=== PATIENT | male | born 1965 | race Caucasian/White ===

== ENCOUNTER 2017-03-17 13:23 | Emergency (ER) | payer OTHER ==
[~2017-03-17] VITALS: Ht 180.3 cm; Wt 104.3 kg
[2017-03-17 14:54] LABS: ABSOLUTE BASOPHIL COUNT 0.1 /CUMM (0.0-0.2); ABSOLUTE EOSINOPHIL COUNT 0.1 /CUMM (0.0-0.7); ABSOLUTE GRANULOCYTE CT 8.9 /CUMM (1.4-6.5); ABSOLUTE LYMPH COUNT 4.1 /CUMM (1.2-3.4); ABSOLUTE MONOCYTE COUNT 0.8 /CUMM (0.10-0.60); BASOPHIL % 0.5 % (0.0-2.0); EOSINOPHIL % 0.8 % (0-5); MEAN CORPUSCULAR HGB 30.7 PG (27.0-31.0); MEAN CORPUSCULAR HGB CONC 33.1 G/DL (33.0-37.0); MEAN CORPUSCULAR VOLUME 92.8 FL (80.0-94.0); MEAN PLATELET VOLUME 8.6 FL (7.4-10.4); PLATELET COUNT 206 /CUMM (130-400); RBC DISTRIBUTION WIDTH 13.5 % (11.5-14.5); RED BLOOD CELL CT 5.71 /CUMM (4.70-6.10)
[2017-03-17 15:17] LABS: GRANULOCYTE % 63.7 % (42.2-75.2)
--- NOTE | 2017-03-17 15:23 | CT SCAN REPORT ---
EXAMINATION: CT HEAD WITHOUT CONTRAST CLINICAL INFORMATION: Blurry vision. COMPARISON: None. TECHNIQUE: Contiguous axial imaging was performed from the skull base to vertex without intravenous administration of contrast. DLP: 638 mGy-cm FINDINGS: No acute intracranial abnormality. No acute intracranial hemorrhage, mass or mass effect or abnormal extra-axial fluid collections. The density within the dural venous sinuses is within normal limits. The ventricles are normal in size, without hydrocephalus. There are no focal areas of hypoattenuation within a vascular distribution to suggest acute transcortical ischemia. The basilar cisterns are patent. No acute calvarial abnormality is identified. Soft tissues appear unremarkable. Evaluation of the paranasal sinuses demonstrates moderate mucosal thickening of the bilateral maxillary sinuses. There is a small mucous retention cyst/polyp within the left maxillary sinus. The remaining imaged paranasal sinuses and mastoid air cells are well aerated. IMPRESSION: No acute intracranial pathology.
[2017-03-17] MEDS ORDERED: ASPIRIN EC81 M1 PO (16:27)
[2017-03-17] MEDS ORDERED: NEURONTIN100 M1 PO (16:27)
--- NOTE | 2017-03-17 16:39 | ED NEURO DEFICIT/STROKE ---
History of Present Illness General Chief Complaint: Neuro Symptoms/ Deficit Stated Complaint: SIB URGENT CARE FOR ?STROKE Source: patient Exam Limitations: no limitations Vital Signs & Intake/Output Vital Signs & Intake/Output Vital Signs Date Time Temp Pulse Resp B/P B/P Pulse O2 O2 Flow FiO2 Mean Ox Delivery Rate 03/17 1642 Room Air 03/17 1642 98.2 90 18 136/87 97 Room Air 03/17 1329 97.2 90 16 128/84 98 Room Air Allergies Coded Allergies: No Known Allergies (03/17/17) Reconcile Medications Aspirin (Ecotrin*) 81 MG TABLET.DR 1 TAB PO DAILY HEART/BLOOD (Reported) Atorvastatin Calcium (Lipitor) 40 MG TABLET 1 TAB PO DAILY HIGH CHOLESTEROL Gabapentin (Neurontin) 100 MG CAPSULE 1 CAP PO DAILY NERVE PAIN (Reported) Metformin HCl 500 MG TABLET 1 TAB PO BID HIGH BLOOD SUGAR Triage Note: PT STATES THAT HE HAS BEEN HAVING BLURRED VISION X 6 DAYS, DENIES HEADACHES, NEUROS INTACT, CONCERNED DUE TOHE HAD A TIA YEARS AGO. SPEECH CLEAR Triage Nurses Notes Reviewed? yes HPI: Patient went to an urgent care and then was subsequently sent here. Patient is complaining of blurry vision for the past week and a half. The blurry vision is constant. There is no headache. There is no nausea or vomiting. There is no weakness or numbness. Patient states that he's been off his Lipitor and his diabetes medication for the past few months. Patient was living in [place] but he moved here to take care of his father. Patient has not seen a doctor here. There is no chest pain or shortness of breath. There is no nausea or vomiting. Past History Travel History Traveled to [place] past 21 day No Medical History Any Pertinent Medical History? 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 No Review of Systems Review of Systems Constitutional: Reports: no symptoms. EENTM: Reports: see HPI, blurred vision. Respiratory: Reports: no symptoms. Cardiovascular: Reports: no symptoms. GI: Reports: no symptoms. Genitourinary: Reports: no symptoms. Musculoskeletal: Reports: no symptoms. Skin: Reports: no symptoms. Neurological/Psychological: Reports: no symptoms. Hematologic/Endocrine: Reports: no symptoms. Immunologic/Allergic: Reports: no symptoms. All Other Systems: Reviewed and Negative Physical Exam Physical Exam General Appearance: well developed/nourished, alert, awake, anxious, mild distress Head: atraumatic, normal appearance Eyes: Bilateral: PERRL, EOMI, other (FUNDUS NORMAL). Ears, Nose, Throat: normal ENT inspection, moist mucous membrane Neck: normal inspection, supple, full range of motion Respiratory: normal breath sounds, chest non-tender, no respiratory distress, lungs clear Cardiovascular: regular rate/rhythm, normal peripheral pulses Gastrointestinal: normal bowel sounds, soft, non-tender Back: normal inspection, normal range of motion Extremities: normal range of motion Psychiatric: awake, alert, oriented x 3 Cranial Nerves: normal hearing, normal speech, PERRL Coordination/Gait: normal finger to nose, normal gait Motor/Sensory: no motor/sensory deficits Reflexes: 2+: ankle (R), ankle (L). 3+: knee (R), knee (L). Skin: intact, normal color, warm/dry Lymphatic: no anterior cervical cira Core Measures CVA/TIA Diagnosis: No Severe Sepsis Present: No Septic Shock Present: No Progress Differential Diagnosis: drug intoxication, electrolyte imbalance, intracranial Hem., intracranial mass/tumor, migraine FABIAN, stroke, vertebrobasilar insuff. Plan of Care: Orders Procedure Date/time Status COMPREHENSIVE METABOLIC PANEL 03/17 1413 Complete CBC WITHOUT DIFFERENTIAL 03/17 1413 Complete ACETONE 03/17 1413 Complete Laboratory Tests 03/17/17 1443: Anion Gap 11, Estimated GFR > 60, BUN/Creatinine Ratio 18.6, Glucose 235 H, Calcium 9.8, Total Bilirubin 1.0, AST 29, ALT 63, Alkaline Phosphatase 125, Total Protein 7.5, Albumin 4.5, Globulin 3.0, Albumin/Globulin Ratio 1.5, CBC w Diff NO MAN DIFF REQ, RBC 5.71, MCV 92.8, MCH 30.7, RDW 13.5, MPV 8.6, Gran % 63.7, Lymphocytes % 29.1, Monocytes % 5.9, Eosinophils % 0.8, Basophils % 0.5, Absolute Granulocytes 8.9 H, Absolute Lymphocytes 4.1 H, Absolute Monocytes 0.8 H, Absolute Eosinophils 0.1, Absolute Basophils 0.1, PUBS MCHC 33.1, Acetone Level NEGATIVE Diagnostic Imaging: Viewed by Me: CT Scan. Discussed w/RAD: CT Scan. Radiology Impression: PATIENT: ARSENIO CADENA PRESENT AGE: 52 PATIENT ACCOUNT NO: [id number] : 63 LOCATION: [facility] ORDERING PHYSICIAN: PAPO GARCIA MD SERVICE DATE: 03/17/17 EXAM TYPE: CAT - CT HEAD WO IV CONTRAST EXAMINATION: CT HEAD WITHOUT CONTRAST CLINICAL INFORMATION: Blurry vision. COMPARISON: None. TECHNIQUE: Contiguous axial imaging was performed from the skull base to vertex without intravenous administration of contrast. DLP: 638 mGy-cm FINDINGS: No acute intracranial abnormality. No acute intracranial hemorrhage, mass or mass effect or abnormal extra-axial fluid collections. The density within the dural venous sinuses is within normal limits. The ventricles are normal in size, without hydrocephalus. There are no focal areas of hypoattenuation within a vascular distribution to suggest acute transcortical ischemia. The basilar cisterns are patent. No acute calvarial abnormality is identified. Soft tissues appear unremarkable. Evaluation of the paranasal sinuses demonstrates moderate mucosal thickening of the bilateral maxillary sinuses. There is a small mucous retention cyst/polyp within the left maxillary sinus. The remaining imaged paranasal sinuses and mastoid air cells are well aerated. IMPRESSION: No acute intracranial pathology. 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 <Electronically signed in Other Vendor System> SIGNED BY: JUHI HAWTHORNE MD 03/17/17 1523 Initial ED EKG: none Departure Departure Disposition: HOME OR SELF CARE Condition: Stable Clinical Impression Primary Impression: Hyperglycemia Secondary Impressions: Blurred vision Referrals: PATIENT HAS NO PRIMARY CARE DR (PCP/Family) KOMAL LAUREANO,BERNARDO Sharpe Additional Instructions: FOLLOW UP WITH DR. SAUCEDA FOR YOUR EYES SOMEONE FROM [facility] WILL CALL YOU FOR AN APPOINTMENT FOR A MEDICAL DOCTOR RETURN FOR ANY CONCERNS Departure Forms: Customer Survey General Discharge Information Prescriptions: Current Visit Scripts Metformin HCl 1 TAB PO BID #60 TAB Atorvastatin Calcium (Lipitor) 1 TAB PO DAILY #30 TAB
[2017-03-17 16:42] VITALS: BP 136/87
[2017-03-17] MEDS ORDERED: LIPITOR40 M1 PO (17:14)
[2017-03-17] MEDS ORDERED: METFORMIN HCL500 M3 PO (17:14)
== END 2017-03-17 17:23 ==
LOC: ERH 13:23
PROVIDERS: Emergency Medicine
DX: E11.65 Type 2 diabetes mellitus with hyperglycemia (principal); H53.8 Other visual disturbances